=== PATIENT | male | born 2000 | race Caucasian/White ===

== ENCOUNTER 2020-12-26 08:39 | Day surgery (SDC) | payer BC ==
[2020-12-26] MEDS ORDERED: Lidocaine 1% PF 5 ML VIAL ONE (09:27)
[2020-12-26] MEDS ORDERED: Glycopyrrolate 0.2 MG/ML 5 ML SYRINGE ONE (09:27)
[2020-12-26] MEDS ORDERED: PROPOFOL 200 MG/20 ML VIAL ONE (09:27)
[2020-12-26] MEDS ORDERED: Metoclopramide HCl 10 MG/2 ML VIAL ONE (09:27)
[2020-12-26] MEDS ORDERED: Ondansetron PF 4 MG/2 ML Vial ONE (09:27)
[2020-12-26] MEDS ORDERED: Succinylcholine 200 MG/10 ml SYRINGE FS ONE (09:27)
[2020-12-26] MEDS ORDERED: Rocuronium Bromide 10 MG/ML (10ML VIAL) ONE (09:27)
[2020-12-26] MEDS ORDERED: Bupivacaine 0.25% HCL 30 ML VIAL ONE (10:01)
[2020-12-26] MEDS ORDERED: XYLOCAINE 2%-EPI 1:100,000 20 ML VIAL ONE (10:01)
[2020-12-26] MEDS ORDERED: Midazolam HCl 2 mg/2 ml Vial ONE ×2 (10:02→10:16)
[2020-12-26] MEDS ORDERED: Fentanyl 100 MCG/2 ML VIAL ONE (10:02)
[2020-12-26] MEDS ORDERED: HYDROcodone/Acetaminophen 5/325 mg Tablet ONE ×2 (14:34→15:14)
--- NOTE | 2020-12-26 19:24 | HP ---
CHIEF COMPLAINT: Abdominal pain. HISTORY OF PRESENT ILLNESS: This is a 20-year-old male with a 1-day history of pain in his right lower quadrant. It is described as sharp, 8/10, does not radiate. The pain last night was seen at [facility], [place] [facility], where CT scan without contrast was equivocal. placed on antibiotics. Pain persisted this morning. Pain is still described as 8/10. No dysuria. No chronic abdominal pain. No chronic diarrhea, constipation, or inflammatory bowel disease. PAST MEDICAL HISTORY: He denies. PAST SURGICAL HISTORY: He denies. MEDICATIONS: None. ALLERGIES: CEPHALOSPORINS. REVIEW OF SYSTEMS: Ten-system review of systems otherwise negative unless described above. SOCIAL HISTORY: No smoking, alcohol, or other drugs. PHYSICAL EXAMINATION: HEENT: Sclerae are anicteric. Oropharynx clear. NECK: No lymphadenopathy. CHEST: Clear. HEART: Regular rate. ABDOMEN: Soft, but tender in the right lower quadrant with localized guarding. There is a positive Rovsing's sign. DIAGNOSTIC DATA: CT scan and labs reviewed. White blood cell count was 17 last night, it was 12 today. ASSESSMENT: Right lower quadrant pain that is persistent despite observation. Equivocal CT scan. PLAN: I recommended laparoscopic appendectomy. Risks, benefits, and alternatives discussed. He gives consent. We will do this today. Job ID: [id number]
--- NOTE | 2020-12-26 19:29 | OP ---
DATE OF PROCEDURE: 12/26/2020 PREOPERATIVE DIAGNOSIS: Acute appendicitis. POSTOPERATIVE DIAGNOSIS: Acute appendicitis. PROCEDURE PERFORMED: Laparoscopic appendectomy. ANESTHESIA: General. ESTIMATED BLOOD LOSS: Minimal. COMPLICATIONS: None. SPECIMEN: Appendix. FINDINGS: Appendicitis. DESCRIPTION OF PROCEDURE: The patient was taken to the operating room and laid supine on the operating table. After general anesthetic was obtained, a Sandoval catheter was placed. The abdomen was prepped and draped in a sterile fashion. A curved incision was made below the umbilicus. Cautery was used to dissect down to and incise the intra-abdominal fascia. The abdominal cavity was entered bluntly using a Tiffani clamp. A holding stitch of Vicryl was placed on each side of the fascia. A Samantha trocar was placed. High-flow peritoneum was obtained. A suprapubic 5-mm port and a left lower quadrant 5-mm port were placed under direct camera visualization. The cecum was rolled over to reveal acute appendicitis. A small window was made at the base of the appendix at the mesoappendix. A laparoscopic stapler was fired across the base of the appendix. A reload was fired across the mesoappendix. There was no bleeding on the staple lines. The appendix was placed in the EndoCatch bag and brought out through the Samantha. The right lower quadrant and pelvis was irrigated using sterile solution. There was no evidence of perforation, no pus. All port sites were infiltrated using local anesthesia. All ports were removed under camera visualization. Pneumoperitoneum was let down. Vicryl suture was used to close the fascial defect below the umbilicus; #4-0 Monocryl and Dermabond were used to close the skin incision. The patient was en route to recovery in stable condition. All instrument counts, needle counts, and lap counts were correct. Job ID: [id number]
== END 2020-12-26 15:30 | disposition home or self-care (01) ==
LOC: SDC 08:39
PROVIDERS: ATTEND Surgery
PROC: 0DTJ4ZZ Resection of Appendix, Percutaneous Endoscopic Approach (ICD-10-PCS; principal; 2020-12-26)
DX: K35.80 Unspecified acute appendicitis (principal); Z88.1 Allergy status to other antibiotic agents
CPT/HCPCS: 88304; J2250; J2405; J2704; J2765; J3010; S0020